=== PATIENT | female | born 1965 | race African-American/Black ===

== ENCOUNTER 2020-11-10 18:56 | Emergency (ER) | payer OTHER ==
[2020-11-10] MEDS ORDERED: Ketorolac Tromethamine 30 MG/ML VIAL ONE (20:01)
[2020-11-10 20:21] LABS: #Eosinphils 0.4 10x3/uL (0.0-0.5); #Monocytes 0.3 10x3/uL (0.0-1.1); #Neutrophils 2.5 10x3/uL (1.5-8.4); %Basophils 0.5 % (0.0-2.0); %Lymphocytes 44.4 % (18.0-47.0); %Monocytes 5.3 % (0.0-10.0); %Neutrophils 42.5 % (40.0-75.0); Hemoglobin 12.2 g/dL (12.0-15.5); Mean Corpuscular HGB CONC 31.4 g/dL (32.0-36.0); Mean Corpuscular Hemoglobin 27.1 pg (27.0-33.0); Mean Corpuscular Volume 86.2 fl (81.6-98.3); Mean Platelet Volume 9.7 fl (7.4-10.4); Platelet Count 284 10x3/uL (150-450); RBC Distribution Width 14.4 % (11.5-14.5); White Blood Cell (WBC) Count 5.9 10x3/uL (3.5-10.5)
[2020-11-10 20:29] LABS: ALT (SGPT) 134 U/L (8-55); AST (SGOT) 88 U/L (5-34); Albumin 4.1 g/dL (3.5-5.0); Alkaline Phosphatase 114 U/L (40-110); Anion Gap 13 mmol/L (10-20); BUN (Urea Nitrogen) 13 mg/dL (9.8-20.1); Bilirubin, Total 0.6 mg/dL (0.2-1.2); Calc. Creatinine Clearance 0 mL/min (70-130); Calcium 9.5 mg/dL (7.8-10.44); Carbon Dioxide 26 mmol/L (22-29); Chloride 106 mmol/L (98-107); Globulin 3.7 g/dL (2.4-3.5); Glucose 142 mg/dL (70-105); Potassium 3.5 mmol/L (3.5-5.1); Protein, Total 7.8 g/dL (6.0-8.3); Sodium 141 mmol/L (136-145)
[2020-11-10 20:30] LABS: Bilirubin Neg (Negative); Blood, Urine 150 (Negative); Clarity Clear (Clear); Glucose, Urine (Dipstick) Normal (Negative); Ketone, Urine Negative (Negative); Leukocyte 25 (Negative); Nitrite Negative (Negative); Protein, Urine (Dipstick) 100 mg/dl (Neg-Trace); Specific Gravity, Urine 1.025 (1.002-1.036); Urobilinogen Normal mg/dL (Less than 2)
[2020-11-10 20:51] LABS: Bacteria/HPF None Seen HPF (None Seen); RBC/HPF 0-3 HPF (0-3); Squamous Epithelial 0-3 HPF (0-3); WBC/HPF 0-3 HPF (0-3)
== END 2020-11-10 21:04 | disposition home or self-care (01) ==
LOC: CSHERS 18:56
DX: K76.0 Fatty (change of) liver, not elsewhere classified (principal); I10 Essential (primary) hypertension; E78.5 Hyperlipidemia, unspecified; Z79.899 Other long term (current) drug therapy
CPT/HCPCS: 36415; 74176; 80053; 81003; 81015; 85025; 96372; J1885

== ENCOUNTER 2020-12-21 11:17 | Emergency (ER) | payer OTHER ==
[2020-12-21] MEDS ORDERED: Dexamethasone 10 MG/ML VIAL ONE (13:36)
== END 2020-12-21 13:40 | disposition home or self-care (01) ==
LOC: CSHERS 11:17
DX: R22.1 Localized swelling, mass and lump, neck (principal); I10 Essential (primary) hypertension; E03.9 Hypothyroidism, unspecified; Z79.899 Other long term (current) drug therapy
CPT/HCPCS: 96372; 99283; J1100

== ENCOUNTER 2021-09-02 06:23 | Emergency (ER) | payer OTHER | END 2021-09-02 09:00 | disposition home or self-care (01) | LOC: CSHERS 06:23 | DX: U07.1 COVID-19 (principal) | CPT/HCPCS: 99283 ==

== ENCOUNTER 2022-04-03 09:28 | Emergency (ER) | payer BC ==
[2022-04-03] MEDS ORDERED: Acetaminophen 500 MG TAB ONE (10:07)
[2022-04-03] MEDS ORDERED: Ketorolac Tromethamine 30 MG/ML VIAL ONE (10:07)
== END 2022-04-03 12:20 | disposition home or self-care (01) ==
LOC: CSHERS 09:28
DX: M25.511 Pain in right shoulder (principal); I10 Essential (primary) hypertension
CPT/HCPCS: 93005; 96372; J1885

== ENCOUNTER 2022-04-07 10:05 | Emergency (ER) | payer BC | END 2022-04-07 10:20 | disposition home or self-care (01) | LOC: CSHERS 10:05 | DX: R60.0 Localized edema (principal); I10 Essential (primary) hypertension | CPT/HCPCS: 99283 ==

== ENCOUNTER 2022-11-30 09:09 | Emergency (ER) | payer BC ==
[2022-11-30] MEDS ORDERED: Dexamethasone 10 MG/ML VIAL ONE (09:47)
[2022-11-30] MEDS ORDERED: Acetaminophen 500 MG TAB ONE (09:47)
[2022-11-30] MEDS ORDERED: Ventolin HFA Inhaler 60 PUFF INHALER ONE (09:47)
[2022-11-30 10:33] LABS: SARS-CoV-2 NAA Rapid Test DETECTED (NotDetected)
[2022-11-30] MEDS ORDERED: Bacitracin 1 PK ONE (12:26)
== END 2022-11-30 11:07 | disposition home or self-care (01) ==
LOC: CSHERS 09:09
DX: U07.1 COVID-19 (principal); I10 Essential (primary) hypertension
CPT/HCPCS: 71045; 93005; J1100

== ENCOUNTER 2023-09-08 05:39 | Emergency (ER) | payer BC ==
[2023-09-08] MEDS ORDERED: Ketorolac Tromethamine 30 MG (1 mL) VIAL ONE ×2 (06:01)
[2023-09-08 06:03] LABS: Bilirubin Neg (Negative); Blood, Urine 250 (Negative); Clarity Slightly Cloudy (Clear); Glucose, Urine (Dipstick) Normal (Negative); Ketone, Urine Negative (Negative); Leukocyte Negative (Negative); Nitrite Negative (Negative); Protein, Urine (Dipstick) 100 mg/dl (Neg-Trace); Urobilinogen Normal mg/dL (Less than 2)
[2023-09-08 06:14] LABS: CAUTI Indications for Culture Pelvic or flank pain; Squamous Epithelial 0-3 HPF (0-3); WBC/HPF 0-3 HPF (0-3)
[2023-09-08 06:15] LABS: Bacteria/HPF None Seen HPF (None Seen)
[2023-09-08 06:16] LABS: Urine Culture Reflex No No
== END 2023-09-08 06:44 | disposition home or self-care (01) ==
LOC: CSHERS 05:39
DX: R10.9 Unspecified abdominal pain (principal); R31.9 Hematuria, unspecified; I10 Essential (primary) hypertension; E05.90 Thyrotoxicosis, unspecified without thyrotoxic crisis or storm
CPT/HCPCS: 81001; 96372; 99284; J1885

== ENCOUNTER 2023-11-02 13:07 | Emergency (ER) | payer BC ==
[2023-11-02] MEDS ORDERED: Dexamethasone 10 MG/ML VIAL ONE (14:25)
[2023-11-02] MEDS ORDERED: Ketorolac Tromethamine 30 MG (1 mL) VIAL ONE (14:25)
== END 2023-11-02 14:30 | disposition home or self-care (01) ==
LOC: CSHERS 13:07
DX: M17.11 Unilateral primary osteoarthritis, right knee (principal); I10 Essential (primary) hypertension
CPT/HCPCS: 96372; 99282; J1100; J1885

== ENCOUNTER 2024-07-23 08:28 | Emergency (ER) | payer BC | END 2024-07-23 10:23 | disposition home or self-care (01) | LOC: CSHERS 08:28 | DX: J06.9 Acute upper respiratory infection, unspecified (principal); I10 Essential (primary) hypertension | CPT/HCPCS: 87081; 87428; 87430; 99283 ==

== ENCOUNTER 2024-08-14 11:22 | Day surgery (SDC) | payer BC ==
[2024-08-13 12:10] VITALS: BMI 35.0
[2024-08-14] MEDS ORDERED: Lidocaine 2% PF 100 mg/5 ml Syringe ONE (14:10)
[2024-08-14] MEDS ORDERED: PROPOFOL 20 ML ONE ×2 (14:10→14:45)
[2024-08-14] MEDS ORDERED: fentaNYL 50 mcg/mL 1 mL Vial ONE ×2 (14:10→14:45)
[2024-08-14] MEDS ORDERED: Rocuronium Bromide 10 MG/ML (10ML VIAL) ONE (14:10)
[2024-08-14] MEDS ORDERED: Ondansetron PF 4 MG/2 ML Vial ONE (14:13)
[2024-08-14] MEDS ORDERED: Midazolam HCl 2 mg/2 ml Vial ONE ×2 (14:13→14:45)
[2024-08-14] MEDS ORDERED: Dexamethasone 4 mg/ml Vial ONE (14:13)
[2024-08-14] MEDS ORDERED: Bupivacaine PF 0.5% 30 ML VIAL ONE (14:13)
[2024-08-14] MEDS ORDERED: CEFAZOLIN 2 GM VIAL ONE (14:22)
[2024-08-14] MEDS ORDERED: Lidocaine 2% PF 5 ML VIAL ONE (14:45)
[2024-08-14] MEDS ORDERED: SUGAMMADEX SODIUM 200 MG/2 ML VIAL ONE (15:35)
[2024-08-14] MEDS ORDERED: Ipratropium/Albuterol 3 ML NEB ONE (16:01)
== END 2024-08-14 18:10 | disposition home or self-care (01) ==
LOC: CSHSDC 11:22
PROVIDERS: ATTEND Podiatrist Foot & Ankle Surgery
PROC: 0QTL0ZZ Resection of Right Tarsal, Open Approach (ICD-10-PCS; principal; 2024-08-14)
DX: M25.774 Osteophyte, right foot (principal); M76.61 Achilles tendinitis, right leg; I10 Essential (primary) hypertension; I48.0 Paroxysmal atrial fibrillation; Z87.19 Personal history of other diseases of the digestive system; Z79.899 Other long term (current) drug therapy; Z90.710 Acquired absence of both cervix and uterus; Z98.890 Other specified postprocedural states; Z91.040 Latex allergy status; Z88.0 Allergy status to penicillin
CPT/HCPCS: C1713; J0665; J1100; J2003; J2250; J2405; J2704; J3010; J7620

== ENCOUNTER 2025-07-12 09:15 | Emergency (ER) | payer BC ==
[2025-07-12] MEDS ORDERED: Ketorolac Tromethamine 30 MG (1 mL) VIAL ONE (11:30)
== END 2025-07-12 11:58 | disposition home or self-care (01) ==
LOC: CSHERS 09:15
DX: S50.11XA Contusion of right forearm, initial encounter (principal); I10 Essential (primary) hypertension; W01.0XXA Fall on same level from slipping, tripping and stumbling without subsequent striking against object, initial encounter; Y92.091 Bathroom in other non-institutional residence as the place of occurrence of the external cause
CPT/HCPCS: 96372; 99283; J1885